=== PATIENT | female | born 1995 | race African-American/Black ===

== ENCOUNTER 2017-08-27 04:15 | Emergency (ER) | payer OTHER ==
[~2017-08-27] VITALS: Ht 167.6 cm; Wt 67.8 kg
[2017-08-27 04:28] VITALS: BP 117/66
--- NOTE | 2017-08-27 04:33 | NUR ---
PT AMBULATED TO BED 2
[2017-08-27] MEDS ORDERED: ONDANSETRON 4 MG/2 ML VIAL IVP ONE (04:35)
--- NOTE | 2017-08-27 04:35 | NUR ---
22/F CAME IN WITH FRIEND, C/O N/V SINCE 229, PT REPORTS VOMITING DARK BROWN WITH "NICKEL-SIZED" BLOOD. PT REPORTS 7/10 EPIGASTRIC PAIN, RADIATING TO BACK. PT REPORTS ASSOCIATED CP, SOB, CHILLS. PT DENIES FEVER, DIARRHEA, DYSURIA. HX HYPOTHYROID. NKA. DR STEPHENS AT BEDSIDE TO EVALUATE PT.
--- NOTE | 2017-08-27 04:35 | NUR ---
Dr. Greenwood evaluating patient.
[2017-08-27] MEDS ORDERED: NACL 0.9% 1,000 ML IV ONE (04:40)
--- NOTE | 2017-08-27 04:40 | NUR ---
PT UNABLE TO COLLECT URINE AT THIS TIME, WILL FOLLOW UP
[2017-08-27 05:02] LABS: BASOPHILS # (AUTO) 0.4 K/uL (0.00-0.22); BASOPHILS % (AUTO) 4.2 % (0.0-2.0); EOSINOPHILS # (AUTO) 0.1 K/uL (0-0.4); EOSINOPHILS % (AUTO) 0.7 % (0.0-4.0); HEMATOCRIT 42.4 % (36-48); HEMOGLOBIN 13.4 g/dL (12.0-16.0); LYMPHOCYTES # (AUTO) 3.3 K/uL (2.5-16.5); LYMPHOCYTES % (AUTO) 32.2 % (20.5-51.1); MEAN CORPUSCULAR HEMOGLOBIN 26 pg (27-31); MEAN CORPUSCULAR HGB CONC 32 g/dL (33-37); MEAN CORPUSCULAR VOLUME 83.2 fL (80-94); MONOCYTES # (AUTO) 0.4 K/uL (0.8-1.0); MONOCYTES % (AUTO) 4.3 % (1.7-9.3); NEUTROPHILS % (AUTO) 58.6 % (42.2-75.2); PLATELET COUNT (AUTO) 298 K/uL (140-450); RED BLOOD CELL COUNT(AUTO) 5.09 MIL/uL (4.20-5.40); RED CELL DISTRIBUTION WIDTH 12.7 % (11.6-13.7); WHITE BLOOD COUNT (AUTO) 10.2 K/uL (4.8-10.8)
--- NOTE | 2017-08-27 06:24 | NUR ---
Patient appears to be resting comfortably in bed. Vital Signs within normal limits. Respirations even and unlabored.
--- NOTE | 2017-08-27 06:25 | NUR ---
PT ABLE TO COLLECT URINE AT THIS TIME, URINE SAMPLE SENT TO LAB AT THIS TIME
[2017-08-27] MEDS ORDERED: ALUMINUM HYD/MAG/SIMETHICONE 30 ML UDC PO ONE (06:35)
[2017-08-27] MEDS ORDERED: DICYCLOMINE HCL LIQUID 10 MG/5 ML UDC PO ONE (06:35)
[2017-08-27] MEDS ORDERED: LIDOCAINE VISCOUS 2% 20 ML UDC PO ONE (06:35)
[2017-08-27 07:17] VITALS: BP 107/66
--- NOTE | 2017-08-27 07:17 | NUR ---
Patient discharged with v/s stable. Written and verbal after care instructions given and explained. Patient alert, oriented and verbalized understanding of instructions. Ambulatory with steady gait. All questions addressed prior to discharge. ID band removed. Patient advised to follow up with PMD. Rx of MAALOX given. Patient educated on indication of medication including possible reaction and side effects. Opportunity to ask questions provided and answered.
[2017-08-27 07:32] LABS: APPEARANCE,URINE CLEAR (CLEAR); BILIRUBIN,URINE NEGATIVE (NEGATIVE); BLOOD, URINE TRACE-I (NEGATIVE); COLOR,URINE YELLOW (YELLOW); LEUKOCYTE ESTERASE ,URINE NEGATIVE (NEGATIVE); NITRITE, URINE NEGATIVE (NEGATIVE); UGLUCOSE NEGATIVE (NEGATIVE)
[2017-08-27 10:30] LABS: ANION GAP 11.8 (8-16); CARBON DIOXIDE 25.8 mmol/L (21-32); POTASSIUM 3.6 mmol/L (3.5-5.1); TOTAL BILIRUBIN 0.1 mg/dL (0.0-1.0)
[2017-08-27 14:23] LABS: RBC,URINE 0-5 (RARE) /HPF (0-5); WBC,URINE 0-5 (RARE) /HPF (0-5)
== END 2017-08-27 07:17 | disposition home or self-care (01) ==
LOC: MED 04:15
DX: K52.9 Noninfective gastroenteritis and colitis, unspecified (principal)
CPT/HCPCS: 36415; 71045; 80053; 81001; 82150; 83605; 83690; 84703; 85025; 87040; 96361; 96374; 99285; J2405; Q0092; 81025